=== PATIENT | female | born 1965 | race African-American/Black ===

== ENCOUNTER 2020-10-06 08:54 | Emergency (ER) | payer OTHER, SELFPAY ==
[~2020-10-06] VITALS: Ht 167.6 cm; Wt 81.6 kg
[2020-10-06 09:24] VITALS: Ht 167.6 cm; Wt 81.6 kg
[2020-10-06 13:41] VITALS: BP 128/80
== END 2020-10-06 13:41 | disposition home or self-care (01) ==
LOC: ED 08:54
DX: M79.10 Myalgia, unspecified site (principal); R63.0 Anorexia; R11.0 Nausea; R19.7 Diarrhea, unspecified; F17.210 Nicotine dependence, cigarettes, uncomplicated; Z20.828 Contact with and (suspected) exposure to other viral communicable diseases
CPT/HCPCS: 99406; U0003

== ENCOUNTER 2020-12-07 08:37 | Emergency (ER) | payer BC ==
[~2020-12-07] VITALS: Ht 167.6 cm; Wt 85.7 kg
[2020-12-07 08:43] VITALS: BP 145/81; Ht 167.6 cm; Wt 85.7 kg
== END 2020-12-07 10:54 | disposition home or self-care (01) ==
LOC: ED 08:37
DX: M17.11 Unilateral primary osteoarthritis, right knee (principal)
CPT/HCPCS: J1885